=== PATIENT | female | born 1985 ===

== ENCOUNTER 2019-10-28 13:29 | Outpatient (CLI) | payer OTHER | END 2019-10-28 13:45 | disposition home or self-care (01) | LOC: SONOGRAMA 13:29 | DX: N20.0 Calculus of kidney (principal) ==

== ENCOUNTER 2020-07-02 08:00 | Outpatient (CLI) | payer OTHER | END 2020-07-02 15:00 | disposition home or self-care (01) | LOC: PPH VACUNA 08:00 | DX: Z23 Encounter for immunization (principal) ==

== ENCOUNTER 2021-09-05 10:50 | Outpatient (CLI) | payer OTHER | END 2021-09-05 10:58 | disposition home or self-care (01) | LOC: RAD 10:50 | DX: I10 Essential (primary) hypertension (principal); Z90.13 Acquired absence of bilateral breasts and nipples ==